=== PATIENT | female | born 1965 | race Caucasian/White ===

== ENCOUNTER 2018-07-18 21:12 | Emergency (ER) | payer BC ==
[2018-07-18 21:29] VITALS: BP 125/75; PULSE 72; TEMP 98.6; BMI 23.9
--- NOTE | 2018-07-18 21:39 | PDOC ---
Rapid Medical Evaluation Chief Complaint: Injury Time Seen by Provider: 07/18/18 21:36 Medical Evaluation: Allergies Allergy/AdvReac Type Severity Reaction Status Date / Time No Known Allergies Allergy Verified 07/18/18 21:29 Vital Signs Temp Pulse Resp BP Pulse Ox 98.6 F 72 16 125/75 100 07/18/18 21:26 07/18/18 21:26 07/18/18 21:26 07/18/18 21:26 07/18/18 21:26 07/18/18 21:37 This patient had a brief in-person evaluation by me The patient has a chief complaint of: injury to back of head today. Patient reports slipped and fell backwards while walking on ramp at home. Denies dizziness before or after fall. States no nausea or loc The pertinent physical findings are: NAD HEENT: lump felt to back of head even and unlabored breathing Neuro: EOMI, PERRL, no drooping, moving all limbs The following orders have been placed: head ct This patient will proceed to the ED for further evaluation Discharge Disposition - Referrals Referrals: Xiang Funes MD [Primary Care Provider] - - Patient Instructions - Post Discharge Activity
--- NOTE | 2018-07-18 22:23 | PDOC ---
History of Present Illness - General Chief Complaint: Injury Stated Complaint: FALL/INJURY Time Seen by Provider: 07/18/18 21:36 History Source: Patient Exam Limitations: No Limitations - History of Present Illness Initial Comments: 07/18/18 22:17 53-year-old female who today status post fall. Patient states she was doing laundry when she slipped on a ramp fell backwards and hit her head happened just prior to arrival per patient's family she was confused and on of it after the fall is currently complaining of pain does report [place] earlier in the night denies any other injuries no neck or back pain no ecchymosis does have mild jaw pain no nausea no vomiting or focal weakness since her fall Past History - Past Medical History Allergies/Adverse Reactions: Allergies Allergy/AdvReac Type Severity Reaction Status Date / Time No Known Allergies Allergy Verified 07/18/18 21:29 Home Medications: Ambulatory Orders Albuterol Sulfate Inhaler - [Ventolin HFA Inhaler -] 2 inh PO Q4H PRN #1 inh 10/16 predniSONE [Deltasone -] 20 mg PO BID #6 tablet 01/11/16 Anemia: No Asthma: No Cancer: No Cardiac Disorders: No CVA: No COPD: No CHF: No Dementia: No Diabetes: No GI Disorders: No Disorders: No HTN: No Hypercholesterolemia: No Liver Disease: No Seizures: No Thyroid Disease: No - Suicide/Smoking/Psychosocial Hx Smoking History: Never smoked Have you smoked in the past 12 months: No Information on smoking cessation initiated: No Hx Alcohol Use: No Drug/Substance Use Hx: No Substance Use Type: None Review of Systems - Review of Systems Constitutional: No: See HPI, Chills, Diaphoresis HEENTM: Yes: Other (jaw pain). No: Eye Pain Respiratory: No: Cough, Orthopnea Cardiac (ROS): No: Chest Pain ABD/GI: No: Abdominal Distended Musculoskeletal: No: See HPI, Back Pain, Gout, Joint Pain Neurological: Yes: Headache All Other Systems: Reviewed and Negative *Physical Exam - Vital Signs Last Vital Signs Temp Pulse Resp BP Pulse Ox 98.6 F 72 16 125/75 100 07/18/18 21:26 07/18/18 21:26 07/18/18 21:26 07/18/18 21:26 07/18/18 21:26 - Physical Exam General Appearance: Yes: Appropriately Dressed HEENT: positive: Normal ENT Inspection, Other (no jaw malocclusion. posterior occipput with palp hematoma.no palp skull defects. no step off. ) Neck: positive: Trachea midline. negative: Tender Respiratory/Chest: positive: Lungs Clear, Normal Breath Sounds. negative: Chest Tender Cardiovascular: positive: Regular Rhythm, Regular Rate, S1, S2 Gastrointestinal/Abdominal: positive: Normal Bowel Sounds, Flat, Soft. negative : Tender Musculoskeletal: positive: Normal Inspection. negative: CVA Tenderness, CVA Tenderness (R), CVA Tenderness (L), Vertebral Tenderness Extremity: positive: Normal Capillary Refill, Normal Inspection, Normal Range of Motion Integumentary: positive: Normal Color, Dry, Warm Neurologic: positive: Fully Oriented, Alert, Normal Mood/Affect, Other (gcs 15. 5/5 all four ext) Medical Decision Making - Medical Decision Making 07/18/18 22:21 53-year-old status post fall positive EtOH posterior scalp hematoma on exam differential contusion or hematoma versus intracranial bleed. Due to the family statements patient was mildly altered after the fall will order CT head pain control Tylenol if negative will DC home with her family members were currently the bedside 07/18/18 22:[address] reviewed and negative for any acute injuries. dc home with tylenol *DC/Admit/Observation/Transfer Diagnosis at time of Disposition: Head trauma - Discharge Dispostion Disposition: HOME Condition at time of disposition: Improved Decision to Admit order: No - Referrals Referrals: Xiang Funes MD [Primary Care Provider] - - Patient Instructions Printed Discharge Instructions: DI for Closed Head Injury Additional Instructions: you will be sore for 3 - 5 days. return for any nausea or vomiting, weakness or any change to mental status or any other concerns. your head ct was negative for any acute injury. for pain you can take ibuprofen 600 mg every 8 hrs as needed for pain. follow up with your primary doctor. - Post Discharge Activity
[2018-07-18] MEDS ORDERED: ACETAMINOPHEN 325 MG TABLET (FP) PO ONE (22:24)
[2018-07-18] MEDS ORDERED: ACETAMINOPHEN 325 MG TABLET (FP) ONE (22:28)
== END 2018-07-18 22:36 | disposition home or self-care (01) ==
LOC: JER 21:12
DX: S09.90XA Unspecified injury of head, initial encounter (principal); W10.2XXA Fall (on)(from) incline, initial encounter; Y93.E2 Activity, laundry; Y92.9 Unspecified place or not applicable
CPT/HCPCS: 70450-TC; 99282-25